=== PATIENT | male | born 1965 | race Caucasian/White ===

== ENCOUNTER 2018-05-01 17:58 | Emergency (ER) | payer MEDICAID ==
[~2018-05-01] VITALS: Ht 180.3 cm; Wt 90.5 kg
[2018-05-01 19:35] VITALS: BP 142/97
== END 2018-05-01 20:41 | disposition home or self-care (01) ==
LOC: EMS 18:00
DX: D18.00 Hemangioma unspecified site (principal); R03.0 Elevated blood-pressure reading, without diagnosis of hypertension
CPT/HCPCS: 99283